=== PATIENT | female | born 1995 | race Caucasian/White ===

== ENCOUNTER 2018-09-17 02:03 | Emergency (ER) | payer BC ==
[~2018-09-17] VITALS: Ht 162.6 cm; Wt 68.2 kg
[~2018-09-17 02:03] MED LIST: ACET325T33 PO; GUAI5SYR2 PO
[2018-09-17 02:09] VITALS: Ht 162.6 cm; Wt 68.2 kg
[2018-09-17] MEDS ORDERED: SOD CHLORIDE 0.9% 1,000 ML IV STA (02:23)
[2018-09-17] MEDS ORDERED: ONDANSETRON 4 MG INJ IV STA (02:23)
--- NOTE | 2018-09-17 03:05 | ERD ---
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 An IV line was established and she was given naloxone en route. She had no vomiting, no loss of bowel or bladder control. White crystalline p owder was found on her nare. HPI was initially limited. ROS All systems reviewed and are negative except as per history of present illness. Medications Home Meds Active Scripts Acetaminophen* (Tylenol*) 325 Mg Tablet, 2 TAB PO Q6 PRN for PAIN AND OR ELEVATED TEMP, #15 TAB Prov:ROZ QUESADA. 08/11/15 Guaifenesin-Dextromethorphan* (Robitussin* DM) 100MG/10MG/5ML Syrup, 10 ML PO Q6H PRN for COUGH, #4 OZ Prov:ROZ QUESADA. 08/11/15 Allergies Allergies: Coded Allergies: No Known Allergy (Unverified , 08/11/15) PMhx/Soc History of Surgery: No Anesthesia Reaction: No Hx Neurological Disorder: No Hx Respiratory Disorders: No Hx Cardiac Disorders: No Hx Psychiatric Problems: No Hx Miscellaneous Medical Probl: No Hx Alcohol Use: No Hx Substance Use: No Hx Tobacco Use: No FmHx Family History: No diabetes Physical Exam Vitals Vital Signs Date Temp Pulse Resp B/P (MAP) Pulse Ox O2 O2 Flow FiO2 Time Delivery Rate 09/17/18 80 16 136/90 100 Room Air 02:30 (105) 09/17/18 98.2 72 18 118/70 100 02:09 (86) Physical Exam Const: No acute distress, intoxicated, afebrile Head: Atraumatic Eyes: Normal Conjunctiva ENT: Normal External Ears, Nose and Mouth. Neck: Full range of motion. No meningismus. Resp: Clear to auscultation bilaterally Cardio: Regular rate and rhythm, no murmurs Abd: Soft, non tender, non distended. Skin: No petechiae or rashes Back: No midline or flank tenderness Ext: No cyanosis, or edema Neur: Pinpoint pupils no facial asymmetry, patient nonverbal Psych: Normal Mood and Affect Result Diagram: 09/17/187 09/17/18 0247 Results 24 hrs Laboratory Tests Test 09/17/18 02:47 White Blood Count 14.6 10^3/ul Red Blood Count 4.22 10^6/ul Hemoglobin 11.5 g/dl Hematocrit 36.3 % Mean Corpuscular Volume 86.0 fl Mean Corpuscular Hemoglobin 27.3 pg Mean Corpuscular Hemoglobin Concent 31.7 g/dl Red Cell Distribution Width 15.1 % Platelet Count 340 10^3/UL Mean Platelet Volume 10.2 fl Immature Granulocytes % 0.200 % Neutrophils % 77.8 % Lymphocytes % 15.8 % Monocytes % 5.8 % Eosinophils % 0.1 % Basophils % 0.3 % Nucleated Red Blood Cells % 0.0 /100WBC Immature Granulocytes # 0.030 10^3/ul Neutrophils # 11.3 10^3/ul Lymphocytes # 2.3 10^3/ul Monocytes # 0.9 10^3/ul Eosinophils # 0.0 10^3/ul Basophils # 0.1 10^3/ul Nucleated Red Blood Cells # 0.0 10^3/ul Sodium Level 143 mmol/L Potassium Level 4.0 mmol/L Chloride Level 102 mmol/L Carbon Dioxide Level 27 mmol/L Anion Gap 14 Blood Urea Nitrogen 6 mg/dl Creatinine 0.48 mg/dl Est Glomerular Filtrat Rate mL/min > 60 mL/min Glucose Level 94 mg/dl Calcium Level 9.7 mg/dl Total Bilirubin 0.0 mg/dl Direct Bilirubin 0.00 mg/dl Indirect Bilirubin 0.0 mg/dl Aspartate Amino Transf (AST/SGOT) 25 IU/L Alanine Aminotransferase (ALT/SGPT) 19 IU/L Alkaline Phosphatase 64 IU/L Troponin I < 0.012 ng/ml Total Protein 7.5 g/dl Albumin 4.3 g/dl Globulin 3.20 g/dl Albumin/Globulin Ratio 1.34 Lipase 49 U/L Current Medications Medications Dose Sig/Zen Start Time Status Last (Trade) Ordered Route PRN Stop Time Admin Dose Reason Admin Sodium 1,000 ml @ Q1H STAT 09/17/18 DC 09/17/18 Chloride 1,000 mls/hr IV 02:23 03:11 09/17/18 03:22 Ondansetron 4 mg ONCE STAT 09/17/18 DC HCl (Zofran IV 02:23 Inj) 09/17/18 02:26 Procedures/MDM IV line was established patient was placed on monitor 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 Patient was afebrile Patient's mental status improved in the emergency department, she came to and was able to answer questions and follow commands, she was still hesitant to provide a specifics regarding her drug ingestion but stated, "I know what happened", she later admitted to using ketamine One AP view of the chest performed, read by me reveals no acute infiltrates, normal mediastinum, sharp costophrenic and cardiac borders, no air under the diaphragm. Otherwise unremarkable chest x-ray. EKG performed, read by me: 90 bpm, normal sinus rhythm, normal axis, no acute ST segment changes, narrow QRS complex, with good R-wave progression in precordial leads. CBC and electrolytes are normal, troponin was negative, patient refused to provide urine Differential diagnoses considered, included but not limited to acute coronary syndrome, pulmonary embolism, aortic dissection, abdominal aortic aneurysm, sepsis, stroke, meningitis, encephalitis, pneumonia, appendicitis, cholecystitis, bowel obstruction, pyelonephritis, nephrolithiasis, cystitis, as well as metabolic, hematologic, and electrolyte abnormalities. As well as abscess, cellulitis, fractures, and dislocations. Patient feels much better at this time, and vital signs are normal, symptoms have improved. I did give strict instructions to return to the ED if symptoms continue or worsen, patient will otherwise follow-up with primary care physician. Patient understood instructions and agreed to plan. Disclaimer: Inadvertent spelling and grammatical errors are likely due to EHR/dictation software use and do not reflect on the overall quality of patient care. Also, please note that the electronic time recorded on this note does not necessarily reflect the actual time of the patient encounter. Departure Diagnosis: Primary Impression: Acute drug overdose Encounter type: initial encounter Injury intent: accidental or uninten tional Qualified Codes: T50.901A - Poisoning by unspecified drugs, medicaments and biological substances, accidental (unintentional), initial encounter Additional Impression: Ketamine overdose Encounter type: initial encounter Injury intent: accidental or unintentional Qualified Codes: T41.291A - Poisoning by other general anesthetics, accidental (unintentional), initial encounter Condition: ADIEL Grimes MD Sep 17, 2018 03:05
[2018-09-17 04:35] VITALS: BP 131/80; PULSE 76; RESP 20
== END 2018-09-17 04:45 | disposition home or self-care (01) ==
LOC: E/R 02:03
DX: T41.291A Poisoning by other general anesthetics, accidental (unintentional), initial encounter (principal)
CPT/HCPCS: 36415; 71045; 80053; 83690; 84484; 85025; 93005; 99285; J7030